=== PATIENT | female | born 1985 | race Caucasian/White ===

== ENCOUNTER → 2019-02-21 09:54 | Outpatient (CLI) | payer OTHER, SELFPAY ==
[2019-02-21 11:02] LABS: Glucose GTT-Gestation. Fasting 78 mg/dL (<105)
[2019-02-21 11:50] LABS: Glucose GTT-Gestational 1 Hr 106 mg/dL (<190)
[2019-02-21 13:23] LABS: Glucose GTT-Gestational 2 Hr 85 mg/dL (<165)
[2019-02-21 13:57] LABS: Glucose GTT-Gestational 3 Hr 84 L (<145)
== END ==
PROVIDERS: Referring Provider Obstetrics & Gynecology; Visit Provider Obstetrics & Gynecology
DX: O24.912 Unspecified diabetes mellitus in pregnancy, second trimester (principal); Z3A.00 Weeks of gestation of pregnancy not specified
CPT/HCPCS: 36415; 82951; 82952

== ENCOUNTER 2019-03-14 23:20 | Outpatient (CLI) | payer OTHER, SELFPAY ==
[2019-03-15] MEDS: Lactated Ringers 1,000 ML 999 ML IV (00:07)
[2019-03-15] MEDS: Ondansetron 4 MG/2 ML Vial IV ×2 (00:18→06:26)
[2019-03-15 00:29] VITALS: BMI 24.8
[2019-03-15 00:30] LABS: Bacteria 0 SEEN /hpf (None Seen); Mucous, Urine 0 SEEN /hpf (<or=2+)
[2019-03-15 00:31] LABS: Absolute Lymphocyte Count 0.79 X10^3/uL (0.83-4.51); Basophil# 0.01 X10^3/uL; Basophil% 0.1 % (0-1); Eosinophil# 0.01 X10^3/uL; Eosinophils% 0.1 % (0-5); Hematocrit 36.1 % (37-47); Hemoglobin 12.3 g/dL (12.0-15.0); Lymphocyte # 0.79 X10^3/ul (4.0); Lymphocyte % 8.4 % (19-41); Mean Corp Hgb Conc 34.1 g/dL (32-36); Mean Corpuscular Hgb 31.5 pg (27.0-32.0); Mean Corpuscular Volume 92.3 fL (81-99); Mean Platelet Vol. 10.4 fl (6.2-12.0); Monocyte# 0.58 X10^3/uL; Monocyte% 6.1 % (0-10); NRBC Flagged by Analyzer 0 % (0-5); Neutrophil # 7.99 X10^3/uL (2.7-7.7); Neutrophil % 84.5 % (47-70); Platelet Count 248 K/mm3 (150-450); RBC Distribution Width CV 12.3 % (11.6-14.6); RBC Distribution Width SD 41.2 fl (35.1-43.9); Red Blood Count 3.91 M/mm3 (4.2-5.4); White Blood Count 9.5 K/mm3 (4.4-11.0)
[2019-03-15 00:33] LABS: Color, Urine Yellow (Yellow); Glucose, Dipstick Normal (Normal); Leukocyte Esterase-Dipstick 100 /ul (Negative); Nitrite-Dipstick Negative (Negative); Occult Blood-Urine Negative /ul (Negative); Protein-Dipstick Negative (Negative); Urine Bilirubin Dipstick Negative (Negative); Urine Clarity Clear (Clear); Urine Urobilinogen Normal (Normal)
[2019-03-15 00:42] LABS: Ketone-Dipstick 150 mg/dl (Negative); Red Blood Cells-Urine 0-5 SEEN /hpf (0-5); Squamous Epithelial Cells - UA 25-50 SEEN /hpf (5-10); White Blood Cells 5-10 SEEN /hpf (0-5)
[2019-03-15 00:46] LABS: AST(SGOT) 17 U/L (15-37); Alanine Aminotransfer ALT/SGPT 14 U/L (13-56); Albumin, Serum 3.1 g/dL (3.2-5.0); Alkaline Phosphatase 51 U/L (45-117); Bilirubin, Direct 0.17 mg/dL (0.00-0.30); Globulin 4.2 g/dL (2.2-4.2); Protein, Total 7.3 g/dL (6.4-8.2)
[2019-03-15] MEDS: Acetaminophen 500 MG Tablet PO (05:36)
--- NOTE | 2019-03-20 08:09 | OB.TRI.NOTE ---
History of Present Illness Date of Service: 03/14/19 Was patient seen by the physician?: Yes Reason For Visit: BACK PAIN Date of Service: 03/14/19 Final SHY: 05/05/19 Final SHY Source: US <20 weeks Gestational age: 32 Weeks and 4 Days History of Present Illness: 33 yo female at 32 4/7 wk presents with severe constant back pain rated 10/10. Prior hx of term delivery after 20 hr labor. one SAB. Denies UTI sx. Allergies Penicillins Allergy (Verified 03/15/19 00:32) Rash Laboratory Studies: Laboratory Tests 03/15/19 03/15/19 03/15/19 Range/Units 00:10 00:09 00:09 WBC 9.5 (4.4-11.0) K/mm3 RBC 3.91 L (4.2-5.4) M/mm3 Hgb 12.3 (12.0-15.0) g/dL Hct 36.1 L (37-47) % MCV 92.3 (81-99) fL MCH 31.5 (27.0-32.0) pg MCHC 34.1 (32-36) g/dL RDW Std Deviation 41.2 (35.1-43.9) fl RDW Coeff of Barbra 12.3 (11.6-14.6) % Plt Count 248 (150-450) K/mm3 MPV 10.4 (6.2-12.0) fl Immature Gran % (Auto) 0.800 (0.0-0.9) % Neut % (Auto) 84.5 H (47-70) % Lymph % (Auto) 8.4 L (19-41) % [place] % (Auto) 6.1 (0-10) % Eos % (Auto) 0.1 (0-5) % Baso % (Auto) 0.1 (0-1) % Absolute Neuts (auto) 8.0 H (2.0-7.7) X10^3/uL Absolute Lymphs (auto) 0.79 L (0.83-4.51) X10^3/uL Nucleated RBC % 0 (0-5) % Total Bilirubin 0.50 (0.20-1.00) mg/dL Direct Bilirubin 0.17 (0.00-0.30) mg/dL AST 17 (15-37) U/L ALT 14 (13-56) U/L Alkaline Phosphatase 51 (45-117) U/L Total Protein 7.3 (6.4-8.2) g/dL Albumin 3.1 L (3.2-5.0) g/dL Globulin 4.2 (2.2-4.2) g/dL Urine Color Yellow (Yellow) Urine Clarity Clear (Clear) Urine pH 7.0 (5.0 - 8.0) Ur Specific [place] 1.010 (1.002-1.030) Urine Protein Negative (Negative) mg/dl Urine Glucose (UA) Normal (Normal) mg/dl Urine Ketones 150 H (Negative) mg/dl Urine Occult Blood Negative (Negative) /ul Urine Nitrite Negative (Negative) Urine Bilirubin Negative (Negative) mg/dL Urine Urobilinogen Normal (Normal) mg/dl Ur Leukocyte Esterase 100 H (Negative) /ul Urine RBC 0-5 SEEN (0-5) /hpf Urine WBC 5-10 SEEN (0-5) /hpf Ur Squamous Epith Cells 25-50 SEEN (5-10) /hpf Urine Bacteria 0 SEEN (None Seen) /hpf Urine Mucus 0 SEEN (<or=2+) /hpf Review of Systems Constitutional: Denies: Anorexia, Chills, Fever Gastrointestinal: Denies: Abdominal Pain Genitourinary: Denies: Dysuria Physical Exam General: Alert, Oriented x3, Cooperative HEENT: Atraumatic, EOMI Abdomen: Soft, Non Tender, Gravid Extremities:: No clubbing, No cyanosis, No edema Neurological: Cranial nerves II-XII grossly intact NST - FHR Rate Baby A Baseline: 140s avg accels to 160-180s Variability:: Moderate Accelerations:: 10 x 10 Decelerations:: Variable - 10 110a NST Reactive:: Yes, Appropriate for gestational age FHR Category:: Category I Uterine Activity:: UCs q3-4 min initially. With fluids given and pain meds, then to irregular. not feeling Impression/Plan 33 yo [id number] female at 32 4/7 wk EGA Musculoskeletal back pain, responded to Tylenol and dose of narcotic given for rest NST reassuring at 32 wks CBC with slight left shift . No inc WBCs and normal Hgb. LE on UA but no bacteria. LFTs WNL. Home Reviewed comfort measures. Encouraged not to lift /carry her child. Maternity support belt. tylenol prn Warm bath or shower Keep next appt as scheduled. Return if inc s/sx of labor.
== END 2019-03-15 11:00 | disposition home or self-care (01) ==
LOC: WPOUT 23:23 → WP 23:42
PROVIDERS: Obstetrics & Gynecology; Referring Provider Obstetrics & Gynecology; Visit Provider Obstetrics & Gynecology
DX: O26.893 Other specified pregnancy related conditions, third trimester (principal); M54.9 Dorsalgia, unspecified; Z88.0 Allergy status to penicillin; Z3A.32 32 weeks gestation of pregnancy
CPT/HCPCS: 36415; 59025; 59050; 80076; 81001; 85025; 99218; J7120; G0378; J2405

== ENCOUNTER 2019-03-26 08:40 | Outpatient (CLI) | payer OTHER, SELFPAY ==
[2019-03-26 09:00] VITALS: BMI 25.1
[2019-03-26 09:37] LABS: Color, Urine Straw (Yellow); Glucose, Dipstick Normal (Normal); Ketone-Dipstick Negative (Negative); Leukocyte Esterase-Dipstick 25 /ul (Negative); Nitrite-Dipstick Negative (Negative); Occult Blood-Urine Negative /ul (Negative); Protein-Dipstick Negative (Negative); Specific Gravity, Urine 1.005 (1.002-1.030); Urine Bilirubin Dipstick Negative (Negative); Urine Clarity Clear (Clear); Urine Urobilinogen Normal (Normal)
--- NOTE | 2019-03-26 10:00 | OB.TRI.PN_ITS ---
Progress Notes Date of Service: 03/26/19 Progress Note: In triage again for same problem of right lower back pain. States she came in two weeks ago and received one dose of Demerol which helped short term. She is still lifting her toddler, has not used maternity belt, and has not tried chiropractor. States massaged the area last night, but did not help. Has tried heating pad, warm baths, ice pack, and Tylenol, but nothing helping. Reports urinary frequency, but just dribbles. UA sent which shows 25+ leukoc ytes. Physical exam reveals tenderness to right lower back with palpation and tight muscle. No fevers. NST FHR baseline 130, + accels, - decels, moderate variability after ice water, Category 1. Spoke with attending Dr. Butt who is in agreement with POC. Will send RX for Macrobid 100mg BID x 5 days, Pyridium 200mg TID x 3 days, Tylenol PRN for pain, and OXY IR x 2 doses for 48 for pain not well controlled. To get in with chiropractor, encourage maternity support band, and no lifting over 5 lbs. Will send UA for culture, but suspected muscle pain. Encourage relief measures. To go home and has follow up in office 03/29/19, but to call if worsening. Laboratory Studies: Laboratory Tests 03/26/19 Range/Units 09:20 Urine Color Straw (Yellow) Urine Clarity Clear (Clear) Urine pH 7.0 (5.0 - 8.0) Ur Specific [place] 1.005 (1.002-1.030) Urine Protein Negative (Negative) mg/dl Urine Glucose (UA) Normal (Normal) mg/dl Urine Ketones Negative (Negative) mg/dl Urine Occult Blood Negative (Negative) /ul Urine Nitrite Negative (Negative) Urine Bilirubin Negative (Negative) mg/dL Urine Urobilinogen Normal (Normal) mg/dl Ur Leukocyte Esterase 25 H (Negative) /ul
== END 2019-03-26 10:15 | disposition home or self-care (01) ==
LOC: WPOUT 08:44 → WP 08:47
PROVIDERS: Obstetrics & Gynecology; Visit Provider Advanced Practice Midwife
DX: O26.899 Other specified pregnancy related conditions, unspecified trimester (principal); M54.5 Low back pain; Z3A.00 Weeks of gestation of pregnancy not specified
CPT/HCPCS: 59025; 59050; 81002; 87086; 87088; 99218; G0378

== ENCOUNTER 2019-05-09 22:30 | Inpatient (IN) | payer OTHER, SELFPAY ==
[2016-03-21 17:12] VITALS: BMI 29.3
[2019-05-09 23:24] VITALS: BMI 26.5
[2019-05-09] MEDS: Lactated Ringers 500 ML 999 ML IV (23:25)
--- NOTE | 2019-05-09 23:26 | PCM.HP.OB ---
- Problem List (1) 40 weeks gestation of Status: Acute History Date of Admission: 05/09/19 Final SHY: 05/05/19 Final SHY Source: US <20 weeks Gestational age: 40 Weeks and 4 Days History of this : This is a 33 year-old, G [3], P [1011], at 40 4/7 weeks gestational age with c/o painful contractions since 6pm. Membranes were stripped in the office earlier today. Allergies Penicillins Allergy (Verified 03/26/19 09:01) Rash Home Medications: Home Medications Vits [Prenatabs FA] 1 tablet PO DAILY 03/21/16 Docusate Sodium [Colace] 1 cap PO DAILY PRN 03/15/19 Vit D3/Folic Acid/B2/B6/B12 [Folgard Tablet] 1 cap PO DAILY PRN 03/15/19 Smoking Status: Never smoker Alcohol: None Number of Fetus(es): 1 NST - FHR Rate Baby A Baseline: 130 Variability:: Moderate Accelerations:: 15 x 15 Decelerations:: None NST Reactive:: Yes FHR Category:: Category I Uterine Activity:: 2/10 History Past Pregnancies: Past Pregnancies Delivery Date Name GA/ Weeks Outcome Route Wt Infant Sex Labor Length Anesthesia Delivery Location Provider FOB 03/22/16 Markus 40 Living 9lb11 oz M 20 Epidural [facility] 12/2016 6 TOP Labs: Mom's Labs & Results 05/09/19 05/09/19 23:30 23:30 WBC 10.4 RBC 3.42 L Hgb 10.9 L Hct 31.7 L MCV 92.7 MCH 31.9 MCHC 34.4 RDW Std Deviation 42.9 RDW Coeff of Barbra 12.6 Plt Count 213 MPV 11.0 Immature Gran % (Auto) 0.900 Neut % (Auto) 77.0 H Lymph % (Auto) 15.6 L [place] % (Auto) 5.8 Eos % (Auto) 0.5 Baso % (Auto) 0.2 Absolute Neuts (auto) 8.0 H Absolute Lymphs (auto) 1.63 Nucleated RBC % 0 Blood Type A POSITIVE Antibody Screen NEGATIVE Course Did the patient receive Yes care? Labs Blood Type: A RH: POSITIVE RPR/VDRL/Syphilis Nonreactive Rubella status Immune HbSAg Negative Date Done: 10/11/18 Chlamydia Negative Gonorrhea Negative HIV/AIDS Non-Reactive Group B Strep: Negative Current Obstetrical History Gestational Diabetes No Incompetent Cervix No Infertility No IUGR No Macrosomia No Hypertension/Pre-eclampsia No Placenta Previa/Abruption No PTL/PROM No Uterine anomaly No Oligohydramnios No Polyhydramnios No Multiple gestation No Past Medical History Asthma No Diabetes No Hypertension No Heart disease No Mitral valve prolapse No Neurologic/Seizure disorder/ No Migraines Kidney disease No Liver disease No Varicosities No Clotting disorders/Hx of DVT No Thyroid Dysfunction No Other medical diseases No Psychiatric disorders No Major trauma No Abnormal PAP smear No Sleep apnea No Mammogram in the last 2 years No Social History Marital Status: Alleged father Justyn Hx Smoking No Smoking Status Never smoker Expected Delivery Method: Spontaneous Vaginal Number of Visits: 12 Review of Systems Constitutional: Denies: Fever Eyes: Denies: Vision Change Cardiovascular: Denies: Chest Pain Respiratory: Denies: Shortness of Breath Gastrointestinal: Denies: Abdominal Pain, Nausea, Vomiting Neurological: Denies: Headaches Physical Exam Vitals: avss General: Alert, Oriented x3, Cooperative, No apparent distress HEENT: Atraumatic, Normocephalic Cardiovascular: Regular rate, Regular Rhythm, Normal S1, Normal S2 Lungs: Clear to auscultation, Normal air movement Abdomen: Soft, Non Tender, Non-Distended, Gravid Extremities:: No edema Neurological: Neuro grossly intact 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 Expectant management Pain management prn Maternal and statuses reassuring
[2019-05-09 23:48] LABS: Absolute Lymphocyte Count 1.63 X10^3/uL (0.83-4.51); Basophil# 0.02 X10^3/uL; Basophil% 0.2 % (0-1); Eosinophil# 0.05 X10^3/uL; Eosinophils% 0.5 % (0-5); Hematocrit 31.7 % (37-47); Hemoglobin 10.9 g/dL (12.0-15.0); Lymphocyte # 1.63 X10^3/ul (4.0); Lymphocyte % 15.6 % (19-41); Mean Corp Hgb Conc 34.4 g/dL (32-36); Mean Corpuscular Hgb 31.9 pg (27.0-32.0); Mean Corpuscular Volume 92.7 fL (81-99); Monocyte# 0.61 X10^3/uL; Monocyte% 5.8 % (0-10); NRBC Flagged by Analyzer 0 % (0-5); Neutrophil # 8.04 X10^3/uL (2.7-7.7); Platelet Count 213 K/mm3 (150-450); RBC Distribution Width CV 12.6 % (11.6-14.6); RBC Distribution Width SD 42.9 fl (35.1-43.9); Red Blood Count 3.42 M/mm3 (4.2-5.4); White Blood Count 10.4 K/mm3 (4.4-11.0)
[2019-05-09] MEDS: Lactated Ringers 1,000 ML 200 ML IV (23:56)
[2019-05-10] MEDS: fentaNYL-bupivacaine (epidural) 100 ML BAG EPIDURAL (00:52)
[2019-05-10] MEDS: Lactated Ringers 500 ML 999 ML IV (03:19)
[2019-05-10] MEDS: Oxytocin 30 units/NS 500 ml 30 UNITS/500 ML IV.SOLN 334 UNITS IV (04:14)
--- NOTE | 2019-05-10 04:40 | OP.PCM_ITS ---
Problem List (1) 40 weeks gestation of Status: Acute Vaginal Delivery Maternal Presentation: Active Labor Rupture of Membrane time: 0348h 05/10/19 Amniotic Fluid Description: Clear Final SHY: 05/05/19 Gestational age: 40 Weeks and 5 Days Date of Procedure: 05/10/19 Pre-Operative Diagnosis: 40 5/7wga, labor Post-Operative Diagnosis: 40 5/7wga, labor Surgery/ Procedure Performed: Spontaneous Vaginal Delivery Anesthesiologist: Mari Blackwood Type of Anesthesia: Epidural Description of Procedure: Patient was FD/-2 station with BBOW. Amniotomy performed with clear fluid. Patient began pushing shortly after. Delivery of head in NIKKIE. Infant mouth and nares were suctioned at the perineum then shoulders delivered to reveal a female . The infant was placed on the maternal abdomen and further a ttended by nursery personnel. The cord was doubly clamped and cut at approximately 4 minutes of life. Cord gas specimen were obtained. The placenta delivered spontaneously and appeared intact on inspection. A First degree perineal laceration with vaginal extension was repaired with 3-0 Vicryl Rapide. Sponge and needle counts were correct x 2 Presentation: Vertex Placental Delivery Description: Spontaneous Placenta Disposition: [facility] Cord Vessel Description: 3 Vessels Nuchal Cord Compression: Without compression Cord Gases drawn per routine: ABG, VBG Cord Entanglement: - - around ankle Drain: Call to straight drain Estimated Blood Loss: 200 ml Infant A gender: Female (1 minute): 8 (5 minute): 9 Episiotomy Description: None Laceration: Midline, 1st degree Medications given after delivery: IV Pitocin Complications: None
[2019-05-10 08:25] VITALS: BP 111/65; PULSE 78; RESP 16; TEMP 37.3
--- NOTE | 2019-05-10 08:30 | NURSING ---
Epidural cath discontinued, blue tip intact.
[2019-05-10] MEDS: Ibuprofen 600 MG Tablet PO ×2 (10:05→21:21)
[2019-05-10] MEDS: Prenatal Vits Tablet 1 TABLET PO (10:05)
[2019-05-10 12:50] VITALS: BP 108/71; PULSE 77; RESP 16; TEMP 36.6
[2019-05-10] MEDS: Acetaminophen 500 MG Tablet 1000 MG PO (13:46)
[2019-05-10 16:35] VITALS: BP 110/65; PULSE 75; RESP 16; TEMP 36.8
[2019-05-10 20:21] VITALS: BP 107/59; PULSE 92; RESP 14; TEMP 37.1
[2019-05-10 23:45] VITALS: BP 116/66; PULSE 72; RESP 16; TEMP 37.1
[2019-05-11] MEDS: Acetaminophen 500 MG Tablet 1000 MG PO ×2 (05:17→14:00)
[2019-05-11 05:19] VITALS: BP 117/63; PULSE 75; RESP 18; TEMP 37.3
[2019-05-11 10:23] VITALS: BP 102/63; PULSE 78; RESP 16; TEMP 36.7; O2SAT 96
[2019-05-11] MEDS: Ibuprofen 600 MG Tablet PO (10:45)
[2019-05-11] MEDS: Prenatal Vits Tablet 1 TABLET PO (10:45)
--- NOTE | 2019-05-11 13:23 | DCINST_ITS ---
Discharge Diet: No Restrictions Discharge Activity: Return to Normal Activity, May Shower, - - No tub bath for 2 weeks May resume sexual activity in: 6 weeks Lifting Restrictions: 10-20 lb Additional Instructions: If you experience any of the following, contact your healthcare provider. * Bleeding that soaks a pad every hour for 2 hours * Fever 100.4 or higher * Unrelieved incision or abdominal pain * Swelling, redness, discharge or bleeding from your incision or episiotomy site * Your incision begins to separate * Problems urinating (including inability to urinate or burning while urinating). * Visual changes * Severe headache * Flu-like symptoms * Pain or redness in one of both of your breasts * Pain, warmth, tenderness or swelling in your legs, especially the calf area * Frequent nausea and vomiting * Symptoms of depression or anxiety If you experience any of the following, call 911 or go to the nearest Emergency Room. * Chest pain * Problems breathing * Seizure activity * Partial or complete paralysis of a body part, slurred speech, weakness or drooping of the face, or a sudden inability to walk or hold your balance Allergies/Adverse Reactions: Allergies Penicillins Allergy (Verified 05/10/19 00:12) Rash Medications to take at Discharge Vits [Prenatabs FA] 1 tablet PO DAILY 03/21/16 Docusate Sodium [Colace] 1 cap PO DAILY PRN 03/15/19 Vit D3/Folic Acid/B2/B6/B12 [Folgard Tablet] 1 cap PO DAILY PRN 03/15/19 Please Follow Up With: Sadia Hendrix MD When: 2 weeks and 6 weeks Primary Care Physician: Care Physician,No Primary [Primary Care Provider] - Test Results: Test results from this visit will be discussed in further detail at your follow- up appointment, if applicable.
--- NOTE | 2019-05-11 13:23 | PCM.DCVAG ---
Discharge Diet: No Restrictions Discharge Activity: Return to Normal Activity, May Shower, - - No tub bath for 2 weeks May resume sexual activity in: 6 weeks Lifting Restrictions: 10-20 lb Additional Instructions: If you experience any of the following, contact your healthcare provider. Bleeding that soaks a pad every hour for 2 hours Fever 100.4 or higher Unrelieved incision or abdominal pain Swelling, redness, discharge or bleeding from your incision or episiotomy site Your incision begins to separate Problems urinating (including inability to urinate or burning while urinating). Visual changes Severe headache Flu-like symptoms Pain or redness in one of both of your breasts Pain, warmth, tenderness or swelling in your legs, especially the calf area Frequent nausea and vomiting Symptoms of depression or anxiety If you experience any of the following, call 911 or go to the nearest Emergency Room. Chest pain Problems breathing Seizure activity Partial or complete paralysis of a body part, slurred speech, weakness or drooping of the face, or a sudden inability to walk or hold your balance Allergies/Adverse Reactions: Allergies Penicillins Allergy (Verified 05/10/19 00:12) Rash Medications to take at Discharge Vits [Prenatabs FA] 1 tablet PO DAILY 03/21/16 Docusate Sodium [Colace] 1 cap PO DAILY PRN 03/15/19 Vit D3/Folic Acid/B2/B6/B12 [Folgard Tablet] 1 cap PO DAILY PRN 03/15/19 Please Follow Up With: Sadia Hendrix MD When: 2 weeks and 6 weeks Primary Care Physician: Care Physician,No Primary [Primary Care Provider] - Test Results: Test results from this visit will be discussed in further detail at your follow-up appointment, if applicable.
[2019-05-11 13:52] VITALS: BP 113/73; PULSE 75; RESP 16; TEMP 36.5; O2SAT 98
--- NOTE | 2019-05-11 18:58 | PCM.PN.OB ---
Subjective: This is a note from today at 0850 Pain well controlled, passing flatus, tolerating diet, well; spouse bedside and supportive; planning OCP for contraception; desires discharge home today Objective: AVSS Nipples atraumatic Fundus firm, midline, U/1, lochia small Perineal repair well approximated, minimal edema, no drainage, erythema or ecchymosis noted - Physical Exam Vitals/I&O's: Vital Signs Temp Pulse Resp BP Pulse Ox 97.7 F L 75 16 113/73 98 05/11/19 13:52 05/11/19 13:52 05/11/19 13:52 05/11/19 13:52 05/11/19 13:52 Oxygen Delivery Method Room Air Weight: 185 lb Body Mass Index (BMI) 26.5 Intake and Output for Last 24 Hours 05/09/19 05/10/19 05/11/19 23:59 23:59 23:59 Intake Total 500 / 500 2176.67 / 2176.67 Output Total 2200 / 2200 Balance 500 / 500 -23.33 / -23.33 General: Alert, Oriented x3, Cooperative, No apparent distress HEENT: PERRLA, EOMI Oral: Moist Mucosa Neck: Supple Lungs: Clear to auscultation, Normal air movement Cardiovascular: Regular rate, Regular Rhythm Abdomen: Bowel Sounds Present, Non Tender, Non-Distended, Passing Flatus, Bowel Sounds Not Present, Gravid Extremities: No edema Skin: No rashes Neurological: Cranial nerves II-XII grossly intact, Deep Tendon Reflexes 2+/4 and Symmetrical, Neuro grossly intact Psych/Mental Status: Normal Affect, Appropriate, Alert and oriented to time, place, person, mood and affect Medical Necessity - Tobacco Use Smoking Status: Never smoker Assessment/Plan All Active Problems 40 weeks gestation of (Acute) Status post vacuum-assisted vaginal delivery (Acute) (normal spontaneous vaginal delivery) (Acute) 41 weeks gestation of (Acute) Assessment: 33yo delivered via at 40w5d gestation PP day #1, normal involution, normal course Plan: Discharge teaching completed Discussed and OCPs, recommend progesterone only pill or LARC, discussed risks, benefits, drawbacks of each; to discuss further at PP visit Discharge home today RTO 6 weeks for PP checkup
== END 2019-05-11 14:55 | disposition home or self-care (01) | DRG 807 ==
PROVIDERS: Admitting Provider Obstetrics & Gynecology; Referring Provider Obstetrics & Gynecology; Visit Provider Obstetrics & Gynecology
DX: O70.0 First degree perineal laceration during delivery (principal); Z37.0 Single live birth; O69.82X0 Labor and delivery complicated by other cord entanglement, without compression, not applicable or unspecified; Z3A.40 40 weeks gestation of pregnancy
CPT/HCPCS: 59050; 85025; 86850; 86900; 86901; 99218; J7120; G0378

== ENCOUNTER → 2025-04-02 | Outpatient (CLI) | payer OTHER, SELFPAY ==
--- OUTSIDE RECORDS SUMMARY | 2025-04-02 18:40 | XMS RPT_ITS | CCD ---
Author Organization [facility] Inform ion Partnership [employer] [facility] [facility] Care Team Providers Care Tug Hand Name Role Phone Unavailable Primary Care Provider Sridevi Lucas Attending Unavailable Care Physician, No Primary Referring Unava ilable Care Physician, No Primary Primary Care Unava ilable Care Physician, No Primary Primary Care Unava ilable Assessment, Health Risk Referring Unavaila ble Assessment, Health Risk Attending Unavaila ble Allergies Allergy Classification Reported Allergen(s) Allergy Type Date of Onset Reaction(s) Facility (3 sources) Penicillins; Translations: [PENICILLINS] Drug Allergy 03-05-2021 Rash [facility] (1 source) Penicillins Drug allergy (disorder) 04-19-2024 [facility] Repository Medications Current Medications Medication Drug Class(es) Dates Sig (Normalized) Sig (Original) cephalexin 500 mg oral capsule (2 sources) Cephalosporin Antibacterial Start: 04-07-2023 End: 04-17-2023 take 1 capsule by mouth twice daily cephALEXin (KEFLEX) 500 mg capsule Indications: Strep throat Take 1 capsule by mouth two times a day for 10 days. 20 capsule 0 04/07/2023 04/17/2023 Active Comment on above: Take 1 capsule by mo [facility] two times a day for 10 days. drospirenone / Ethinyl Estradiol / levomefolate (2 sources) Progestin, Estrogen Start: 02-22-2021 take 1 tablet by mouth once daily drospirenone-e.e stradiol-lm.FA (BEYAZ) 3-0.02-0.451 mg (24) (4) tab Take 1 tablet by mouth once daily. 02/22/2021 Active Start: 02-22-2021 take 1 tablet by sal once daily drospirenone-e.estradiol-lm.FA (BEYAZ) 3-0.02-0.451 mg (24) (4) tab Take 1 tablet by mouth once daily. 0 02/22/2021 Active Comment on above: Take 1 tablet by sal th once daily. Completed/Discontinued Medications Medication Drug Class(es) Dates Sig (Normalized) Sig (Original) benzonatate 100 mg oral capsule (1 source) Non-narcotic Antitussive Start: 03-05-2021 take 2 capsules by mouth every eight hours as needed for cough and cough benzonatate (TESSALON PERLE) 100 mg capsule Indications: Cough Take 2 capsules by mouth three times daily as needed. 30 capsule 0 03/05/2021 Active Comment on above: Take 2 capsules by [facility] three times daily as needed. Problems Active Problems Problem Classification Problem Date Documented Da te Episodic/Chronic Lymphadenitis (1 source) Cervical lymphadenopathy; Translations: [Localized enlarged lymph nodes] 04-07-2023 Episodic Unclassified (1 source) Acute cough; Translations: [Acute cough] Onset: 05-16-2024 Past or Other Problems Problem Classification Problem Date Documented Da te Episodic/Chronic Other upper respiratory disease (1 source) Nasal congestion; Translations: [Nasal congestion] Onset: 05-16-2024 Episodic Other upper respiratory infections (4 sources) Sore throat symptom; Translations: [Acute pharyngitis, unspecified] Onset: 05-16-2024 04-07-2023 Episodic Results Test Name Value Interpretation Reference Range Facil ity CBC, Employeeon 12-02-2024 Absolute Lymph 1.25 X10 3/uL Normal 0.83-4.51 [facility] Comment on above: Performed By: #### L 100.0200, L500.2900 #### [facility] [address] [place], [address] Absolute Neut 1.7 X10 3/uL Low 2.0-7.7 [facility] Comment on above: Performed By: #### L 100.0200, L500.2900 #### [facility] [address] [place], [address] Basophils/100 WBC (Bld) 0.6 % Normal 0-1 [facility] Comment on above: Performed By: #### L 100.0200, L500.2900 #### [facility] [address] [place], [address] Eosinophils/100 WBC (Bld) 1.8 % Normal 0-5 [facility] Comment on above: Performed By: #### L 100.0200, L500.2900 #### [facility] [address] [place], [address] Erythrocyte distribution width (RBC) [Ratio] 11.8 % Normal 11.6-14.6 [facility] Comment on above: Performed By: #### L 100.0200, L500.2900 #### [facility] [address] [place], [address] Hematocrit (Bld) [Volume fraction] 34.9 % Low 37-47 [facility] Comment on above: Performed By: #### L 100.0200, L500.2900 #### [facility] [address] [place], [address] Hemoglobin (Bld) [Mass/Vol] 11.7 g/dL Low 12.0-15.0 [facility] Comment on above: Performed By: #### L 100.0200, L500.2900 #### [facility] [address] [place], [address] Lymphocytes/100 WBC (Bld) 38.2 % Normal 19-41 [facility] Comment on above: Performed By: #### L 100.0200, L500.2900 #### [facility] [address] [place], [address] MCH (RBC) [Entitic mass] 30.9 pg Normal 27.0-32.0 [facility] Comment on above: Performed By: #### L 100.0200, L500.2900 #### [facility] [address] [place], [address] MCHC (RBC) [Mass/Vol] 33.5 g/dL Normal 32-36 [facility] Comment on above: Performed By: #### L 100.0200, L500.2900 #### [facility] [address] [place], [address] MCV (RBC) [Entitic vol] 92.1 fL Normal 81-99 [facility] Comment on above: Performed By: #### L 100.0200, L500.2900 #### [facility] [address] [place], [address] Monocytes/100 WBC (Bld) 7.6 % Normal 0-10 [facility] Comment on above: Performed By: #### L 100.0200, L500.2900 #### [facility] [address] [place], [address] Neutrophils/100 WBC (Bld) 51.8 % Normal 47-70 [facility] Comment on above: Performed By: #### L 100.0200, L500.2900 #### [facility] [address] [place], [address] NRBC # 0.00 10 3/uL Normal 0-5 [facility] Comment on above: Performed By: #### L 100.0200, L500.2900 #### [facility] [address] [place], [address] Nucleated RBC (Bld) [#/Vol] 0 10*3/uL Normal 0-5 [facility] Comment on above: Performed By: #### L 100.0200, L500.2900 #### [facility] [address] [place], [address] Platelet mean volume (Bld) [Entitic vol] 10.4 fL Normal 6.2-12.0 [facility] Comment on above: Performed By: #### L 100.0200, L500.2900 #### [facility] [address] [place] [address] Platelets (Bld) [#/Vol] 222 10*3/uL Normal 150-450 [facility] Comment on above: Performed By: #### L 100.0200, L500.2900 #### [facility] [address] [place], [address] RBC (Bld) [#/Vol] 3.79 10*6/uL Low 4.2-5.4 [facility] Comment on above: Performed By: #### L 100.0200, L500.2900 #### [facility] [address] [place], [address] RDW SD 39.8 fl Normal 35.1-43.9 [facility] Comment on above: Performed By: #### L 100.0200, L500.2900 #### [facility] [address] [place], [address] WBC (Bld) [#/Vol] 3.3 10*3/uL Low 4.4-11.0 [facility] Comment on above: Performed By: #### L 100.0200, L500.2900 #### [facility] [address] [place], [address] [employer] 5 LDH 143 U/L Normal 84-246 [facility] Comment on above: Performed By: #### L 100.0200, L500.2900 #### [facility] [address] [place], [address] Phosphate [Mass/Vol] 3.6 mg/dL Normal 2.7-4.[address] [facility] Comment on above: Performed By: #### L 100.0200, L500.2900 #### [facility] [address] [place], [address] URIC 2.4 mg/dL Low 2.6-6.0 [facility] Comment on above: Result Comment: The drugs N-Acetylcysteine and Metamizole may falsely depress this assay. Performed By: #### L 100.0200, L500.2900 #### [facility] [address] [place], [address] Urgent Care Visit Reporton 0 04-19-2024 Urgent Care Visit Report [facility] [address], [address] [place] [address] OFFICE VISIT Date of Service: 04/19/24 MR#: [id number] Acct: [id number] Name: MAKAYLA LOZANO Rep #: [id number] : 1985 Provider: GISSELL Booth Age/Sex: 38/F Location: [facility] Status: Signed Intake Vital Signs 05/09/19 23:43 04/19/24 08:14 Height 5 ft 10 in 5 ft 10 in Weight: 140 lb 6 oz BMI 20.1 BP 104/58 L Blood Pressure Location Lt brachial Position Sitting Respiration 16 Pulse 71 Pulse Source NIBP Temp 98.0 F Temp Source Oral Pulse Oximetry (%) 98 Oxygen Delivery Method room air Intake Visit Reasons: Cough Chief Complaint: cough, chest congestion [employer] Required: No Is patient in pain?: No Allergies Penicillins Allergy (Verified 04/19/24 08:25) Rash Medications ???Medication ???Instructions ???Recorded ???Confirmed ???Type vits,calcium no.78-iron 1 tab PO DAILY 03/21/16 05/10/19 History fumarate-folic acid 29 mg-1 mg tablet (Prenatabs FA) doxycycline monohydrate 100 mg 100 mg PO BID 7 days #14 caps 04/19/24 04/19/24 Rx capsule Is last menstrual period known: No Post menopausal: No Patient : No Have you fallen in the past year?: No Nurse's Note: cough, chest congestion x 3 weeks without resolve. pt denies ST, fever, BA PFSH Surgical History (Updated 04/19/24 @ 08:21 by Pallavi Tracy) No significant past surgical history Family History (Updated 04/19/24 @ 08:21 by Pallavi Tracy) Other Cancer Social History Smoking Status: Never smoker HPI HPI Chief Complaint: cough, chest congestion Details: MAKAYLA LOZANO, is a 38 F who presents to the office today for cough -sx started about 3 wks ago -a lot of mucous, started to feel better until yesterday- -yellow mucous -couple days ago with runny nose -sinus pressure -no fever or chills -denies ST, body aches, or sob -tried so far mucinex and ibuprofen ROS Const Constitutional: Positive for other (ROS negative x6 except what was placed in HPI) Exam Const General: cooperative, comfortable and no acute distress Orientation: alert, awake and oriented x3 HENMT Head: normal to inspection and normocephalic Ears: hearing grossly normal bilaterally, external ears normal and TM's normal bilaterally Nose: external nose normal, nares normal, no nasal polyps, nasal discharge clear and other (+ congestion and rhinorrhea. Mild erythema and swelling) Face and sinus: normal facial exam, face symmetric and sinus tenderness frontal Mouth: oral mucosae normal, lip normal, tongue normal, oropharynx normal and moist mucous membranes Throat: posterior oropharynx normal, tonsils normal, uvula midline and postnasal drainage Neck Neck: normal visual inspection, full ROM and no lymphadenopathy Resp Effort Inspection: normal respiratory effort, able to speak in complete sentences and symmetric chest movement Auscultation: Bilateral: Clear to Auscultation, Left: Clear to Auscultation and Right: Clear to Auscultation Cardio Rate: regular rate Rhythm: regular rhythm Heart Sounds: S1 normal and S2 normal GI Auscultation: normal bowel sounds Palpation: soft Skin General: no rashes or lesions noted and turgor normal Neuro General: patient alert, patient awake and patient oriented x3 Cognition: normal cognition Speech: speech normal Psych Appearance: grossly normal Mental Status: mental status grossly normal Attitude: cooperative Thought Process: normal Thought Content: normal Coding Level of Care Code Off vis,new,level 3 Diagnoses Acute non-recurrent frontal sinusitis J01.10 Sinusitis location: frontal Chronicity: acute Recurrence: non-recurrent PND (post-nasal drip) R09.82 Acute cough R05.1 Cough type: acute Nasal congestion R09.81 Assessment and Plan Assessment and Plan (1) Sinus infection: Status: Acute Qualifiers: Sinusitis location: frontal Chronicity: acute Recurrence: non-recurrent Qualified Code(s): J01.10 - Acute frontal sinusitis, unspecified Plan: -If prescribed antibiotics take the full course even if feeling better. Warm salt water gargles, warm tea with honey, increase fluids, saline nasal spray 2 squirts each nostril every 2 hours as needed, Flonase nasal spray 1 squirt once a day, cetirizine (Zyrtec) one daily, cool mist humidifier, Tylenol and or ibuprofen as needed for fever or discomfort. -to avoid GI upset, diarrhea, yeast infection eat a yogurt daily or take an otc probiotic -Please follow up with your Primary Care Physician for ongoing chronic problems. If symptoms change or worsen, please present to Emergency Room for further evaluation 1. See visit diagnoses, disposition, and orders. 2. Reviewed and updated medication list; Discus (more content not included)... [facility] Visit (UCW[facility] ) MAKAYLA LOZANO ([id number]) 1985 F Date Time Provider Department 04/07/23 2:15 PM ISABEL JENNINGS [facility] During your visit today, we recorded the following information about you: Temperature Respiration Blood pressure Weight 98 degrees 18/minute 112/60 65.7 kg Isabel Jennings APRN.SENIOR NET DEVELOPER 04/07/2023 2:32 PM Signed Subjective Sore Throat Associated symptoms include coughing. Pertinent negatives include no abdominal pain, congestion, ear pain or vomiting. Makayla Lozano is a 37 year old female who presents with swollen lymph node on the left side of her neck. She has had chills, a slight cough and sore throat and nausea. She has taken ibuprofen for symptoms. Works in a [employer]. No fever today. Review of Systems Constitutional: Positive for chills. Negative for fever. HENT: Positive for sore throat. Negative for congestion and ear pain. Respiratory: Positive for cough. Cardiovascular: Negative. Gastrointestinal: Positive for nausea. Negative for abdominal pain and vomiting. Skin: Negative for rash. BP 112/60 Temp 36.7 ?C (98 ?F) Resp 18 Wt 65.7 kg (144 lb 12.8 oz) LMP 02/19/2021 (Exact Date) SpO2 98% No past medical history on file. No past surgical history on file. ALLERGIES Penicillins MEDICATIONS cephALEXin (KEFLEX) 500 mg capsule Take 1 capsule by mouth two times a day for 10 days. drospirenone-e.estrad iol-lm.FA (BEYAZ) 3-0.02-0.451 mg (24) (4) tab Take 1 tablet by mouth once daily. (Patient not taking: Reported on 04/07/2023) benzonatate (TESSALON PERLE) 100 mg capsule Take 2 capsules by mouth three times daily as needed. (Patient not taking: Reported on 04/07/2023) No family history on file. Social History Tobacco Use Smoking status: Never Smokeless tobacco: Never Objective Physical Exam Vitals and nursing note reviewed. Constitutional: Appearance: Normal appearance. HENT: Right Ear: Tympanic membrane, ear canal and external ear normal. Left Ear: Tympanic membrane, ear canal and external ear normal. Nose: Nose normal. Mouth/Throat: Mouth: Mucous membranes are moist. Pharynx: Uvula midline. Posterior oropharyngeal erythema present. No oropharyngeal exudate. Cardiovascular: Rate and Rhythm: Normal rate and regular rhythm. Heart sounds: Normal heart sounds. Pulmonary: Effort: Pulmonary effort is normal. No respiratory distress. Breath sounds: Normal breath sounds. No wheezing or rales. Musculoskeletal: Cervical back: Neck supple. Lymphadenopathy: Cervical: Cervical adenopathy present. Left cervical: Superficial cervical adenopathy present. Skin: General: Skin is warm and dry. Findings: No erythema or rash. Neurological: Mental Status: She is alert. ASSESSMENT/PLAN: 1. Sore throat - ICD9: 462, ICD10: J02.9 (primary diagnosis) - Group A strep molecular testing positive - STREP A MOLECULAR (POC) 2. Strep throat - ICD9: 034.0, ICD10: J02.0 - antibiotic as written - Discussed supportive care treatment with fluids, rest and analgesia. - The patient may also use warm salt water gargles, throat lozenges and/or OTC throat spray as needed. - Contagious dz precautions discussed- including considered contagious until on antibiotics for 24 hours - Call back if drooling, increased temperature, symptoms of dehydration and/or still sick in one week - CEPHALEXIN 500 MG CAPSULE 3. Lymphadenopathy, cervical - ICD9: 785.6, ICD10: R59.0 -likely due to strep infection. - Follow-up with your PCP in 3-5 days if symptoms have not improved or sooner if symptoms worsen - Discussed red flags and need for immediate medical evaluation if any occur. - Discussed supportive care treatment with fluids, rest and analgesia. - Discussed expected course of illness EVE Lovett Kathy, APRN.CNP 04/07/2023 2:24 PM Signed ASSESSMENT/PLAN: 1. Sore throat - ICD9: 462, ICD10: J02.9 (primary diagnosis) - Group A strep molecular testing positive - STREP A MOLECULAR (POC) 2. Strep throat - ICD9: 034.0, ICD10: J02.0 - antibiotic as written - Discussed supportive care treatment with fluids, rest and analgesia. - The patient may also use warm salt water gargles, throat lozenges and/or OTC throat spray as needed. - Contagious dz precautions discussed- including considered contagious until on antibiotics for 24 hours - Call back if drooling, increased temperature, symptoms of dehydration and/or still sick in one week - CEPHALEXIN 500 MG CAPSULE 3. Lymphadenopathy, cervical - ICD9: 785.6, ICD10: R59.0 -likely due to strep infection. - Follow-up with your PCP in 3-5 days if symptoms have not improved or sooner if symptoms worsen - Discussed red flags and need for immediate medical evaluation if any occur. - Discussed supportive care treatment with fluids, rest and analgesia. - Discus (more content not included)... Normal [facility] STREP A MOLECULAR (POC)on Procedural Control Valid [facility] Strep A (POCT) Positive Abnormal Negative [facility] XR Chest PA and Lateralon IMPRESSION: No acute radiographic abnormality. Head Tennis Coach: TONEY Transcribe Date/Time: Mar 05 2021 5:25P Dictated by : ZEYNEP JONES MD This examination was interpreted and the report reviewed and electronically signed by: ZEYNEP JONES MD on Mar 05 2021 5:26PM [facility] DIVISION OF RADIOLOGY * * *Final Report* * * DATE OF EXAM: Mar 05 2021 5:24PM WOX [id number] - XR CHEST 2V FRONTAL/LAT / PROCEDURE REASON: Cough * * * * Physician Interpretation * * * * EXAMINATION: XR CHEST 2V FRONTAL/LAT Clinical History: Pt. states cough for 1 month. Chest pain and soreness for 1 week.. Cough . MQ: XC2_5 Comparison: none available RESULT: Lines, tubes, and devices: none Lungs and pleura: No consolidation. No lung mass. No pleural effusion. Cardiomediastinal silhouette: Normal. Other: - DIVISION OF RADIOLOGY Provider, [facility] - 03/05/2021 * * *Final Report* * * DATE OF EXAM: Mar 05 2021 5:24PM WOX [id number] - XR CHEST 2V FRONTAL/LAT / PROCEDURE REASON: Cough * * * * Physician Interpretation * * * * EXAMINATION: XR CHEST 2V FRONTAL/LAT Clinical History: Pt. states cough for 1 month. Chest pain and soreness for 1 week.. Cough . MQ: XC2_5 Comparison: none available RESULT: Lines, tubes, and devices: none Lungs and pleura: No consolidation. No lung mass. No pleural effusion. Cardiomediastinal silhouette: Normal. Other: - IMPRESSION IMPRESSION: No acute radiographic abnormality. Head Tennis Coach: TONEY Transcribe Date/Time: Mar 05 2021 5:25P Dictated by : ZEYNEP JONES MD This examination was interpreted and the report reviewed and electronically signed by: ZEYNEP JONES MD on Mar 05 2021 5:26PM EST [facility] Radiology Study observation (narrative) [facility] XR Chest PA and LateralOrder ed By: Cc Provider on 03-05-2021 [facility] Vital Signs Date Time Vital Sign Value Performing Clinician Faci lity 04-07-2023 14:13-0500 Body temperature 98.01 [degF] Isabelscott Jennings APRN.SENIOR NET DEVELOPER Work Phone: [facility] 04-07-2023 14:13-0500 Body weight 65.68 kg Isabel Jennings APRN.SENIOR NET DEVELOPER Work Phone: [facility] 04-07-2023 14:13-0500 Diastolic blood pressure 60 mm[Hg] Isabel Jennings APRN.SENIOR NET DEVELOPER Work Phone: [facility] 04-07-2023 14:13-0500 Respiratory rate 18 /min Isabel Jennings APRN.SENIOR NET DEVELOPER Work Phone: [facility] 04-07-2023 14:13-0500 SaO2% (BldA) [Mass fraction] 98 % Isabel Jennings APRN.SENIOR NET DEVELOPER Work Phone: [facility] 04-07-2023 14:13-0500 Systolic blood pressure 112 mm[Hg] Isabel Jennings APRN.SENIOR NET DEVELOPER Work Phone: [facility] Encounters Encounter Date Encounter Type Care Provider Facility Start: 12-02-2024 ambulatory No Primary Car e Physician Facility:[facility] Start: 04-19-2024 End: 04-19-2024 ambulatory [facility] Facility:[facility] Start: 04-07-2023 End: 04-07-2023 ambulatory Facility:[facility] Start: 04-07-2023 End: 04-07-2023 Patient encounter procedure Isabel Jennings APRN.SENIOR NET DEVELOPER Work Phone: [facility] Comment on above: Sore throat (Primary Dx); Strep throat; Lymphadenopathy, cervical Start: 03-05-2021 End: 03-05-2021 Subsequent hospital visit by physician Xr [facility] Work Phone: Radiology Comment on above: Cough [R05.9] Procedures Date Procedure Procedure Detail Performing Clinician Start: 04-07-2023 STREP A MOLECULAR (POC) Isabel Jennings APRN.SENIOR NET DEVELOPER Work Phone: Start: 03-05-2021 Radiologic exam ches t 2 views Jaylen Weiss APRN.SENIOR NET DEVELOPER Work Phone: Plan of Treatment Date Care Activity Detail Author Start: 12-19-2023 Covid-19 Vaccine ( season) Covid-19 Vaccine ( season) [facility] Start: 12-19-2023 Influenza vaccination Influenza Vacc ine (#1) [facility] Start: 12-18-2022 Covid-19 Vaccine ( season) Covid-19 Vaccine () [facility] Start: 12-18-2022 Influenza vaccination Influenza Vacc ine (#1) [facility] Start: 04-19-2022 Depression Assessment Depression Ass essment [facility] Start: 11-26-2017 Screening for malign ant neoplasm of cervix HPV Testing [facility] Start: 11-26-2008 Screening for malign ant neoplasm of cervix [facility] Start: 11-26-2006 Hepatitis B Vaccine (1 of 3 - 19+ 3-dose series) Hepatitis B Vaccine (1 of 3 - 19+ 3-dose series) [facility] Start: 11-26-2006 Urine microalbumin profile DTa P,Tdap,Td Vaccine (1 - Tdap) [facility] Start: 11-26-2005 Anxiety Screening Anxiety Screening [facility] Start: 11-26-2005 Depression Screening Depression Scre ening [facility] Start: 11-26-2005 Hepatitis C screening Hepatitis C Sc elise [facility] Start: 11-26-2005 HIV screening HIV Screening [facility] Start: 1985 Hepatitis B Vaccine (1 of 3 - 3-dose series) Hepatitis B Vaccine (1 of 3 - 3-dose series) [facility] Immunizations Immunization Date Immunization Notes Care Provider Robert tanner 03-23-2016 influenza virus vacc ine, unspecified formulation Isabel Jennings APRN.CNP Work Phone: [facility] Payers Date Payer Category Payer Self-pay 2020 Private Health Insurance [id number] 2020 Unknown [id number] Unknown [id number] Unknown [id number] Social History Date Type Detail Facility Start: 03-05-2021 End: 04-07-2023 Tobacco smoking status NHIS Never smoked tobacco [facility] Start: 03-05-2021 End: 04-07-2023 Tobacco use and exposure Smokeless tobacco non-user [facility] Start: 03-05-2021 End: 04-07-2023 History of Social function [facility] Start: 03-05-2021 End: 04-07-2023 Tobacco use panel [facility] Start: 1985 Sex Assigned At Not on file [facility] Progress note 04-07-2023 Note Date & Type Note Facility 04-07-2023 Note HNO ID: [id number] Author: Isabel Jennings APRN.SENIOR NET DEVELOPER Service: ? Author Type: Nurse Practitioner Type: Progress Notes Filed: 04/07/2023 2:32 PM Note Text: Subjective Sore Throat Associated symptoms include coughing. Pertinent negatives include no abdominal pain, congestion, ear pain or vomiting. Makayla Lozano is a 37 year old female who presents with swollen lymph node on the left side of her neck. She has had chills, a slight cough and sore throat and nausea. She has taken ibuprofen for symptoms. Works in a [employer]. No fever today. Review of Systems Constitutional: Positive for chills. Negative for fever. HENT: Positive for sore throat. Negative for congestion and ear pain. Respiratory: Positive for cough. Cardiovascular: Negative. Gastrointestinal: Positive for nausea. Negative for abdominal pain and vomiting. Skin: Negative for rash. BP 112/60 Temp 36.7 ?C (98 ?F) Resp 18 Wt 65.7 kg (144 lb 12.8 oz) LMP 02/19/2021 (Exact Date) SpO2 98% No past medical history on file. No past surgical history on file. ALLERGIES Penicillins MEDICATIONS cephALEXin (KEFLEX) 500 mg capsule Take 1 capsule by mouth two times a day for 10 days. drospirenone-e.estradiol-lm.FA (BEYAZ) 3-0.02-0.451 mg (24) (4) tab Take 1 tablet by mouth once daily. (Patient not taking: Reported on 04/07/2023) benzonatate (TESSALON PERLE) 100 mg capsule Take 2 capsules by mouth three times daily as needed. (Patient not taking: Reported on 04/07/2023) No family history on file. Social History Tobacco Use Smoking status: Never Smokeless tobacco: Never Objective Physical Exam Vitals and nursing note reviewed. Constitutional: Appearance: Normal appearance. HENT: Right Ear: Tympanic membrane, ear canal and external ear normal. Left Ear: Tympanic membrane, ear canal and external ear normal. Nose: Nose normal. Mouth/Throat: Mouth: Mucous membranes are moist. Pharynx: Uvula midline. Posterior oropharyngeal erythema present. No oropharyngeal exudate. Cardiovascular: Rate and Rhythm: Normal rate and regular rhythm. Heart sounds: Normal heart sounds. Pulmonary: Effort: Pulmonary effort is normal. No respiratory distress. Breath sounds: Normal breath sounds. No wheezing or rales. Musculoskeletal: Cervical back: Neck supple. Lymphadenopathy: Cervical: Cervical adenopathy present. Left cervical: Superficial cervical adenopathy present. Skin: General: Skin is warm and dry. Findings: No erythema or rash. Neurological: Mental Status: She is alert. ASSESSMENT/PLAN: 1. Sore throat - ICD9: 462, ICD10: J02.9 (primary diagnosis) - Group A strep molecular testing positive - STREP A MOLECULAR (POC) 2. Strep throat - ICD9: 034.0, ICD10: J02.0 - antibiotic as written - Discussed supportive care treatment with fluids, rest and analgesia. - The patient may also use warm salt water gargles, throat lozenges and/or OTC throat spray as needed. - Contagious dz precautions discussed- including considered contagious until on antibiotics for 24 hours - Call back if drooling, increased temperature, symptoms of dehydration and/or still sick in one week - CEPHALEXIN 500 MG CAPSULE 3. Lymphadenopathy, cervical - ICD9: 785.6, ICD10: R59.0 -likely due to strep infection. - Follow-up with your PCP in 3-5 days if symptoms have not improved or sooner if symptoms worsen - Discussed red flags and need for immediate medical evaluation if any occur. - Discussed supportive care treatment with fluids, rest and analgesia. - Discussed expected course of illness Isabel Jennings APRN.[facility] Instructions 04-07-2023 Patient Instructions Note Date & Type Note Facility 04-07-2023 Instructions Isabel Jennings APRN.[facility] - 04/07/2023 2:24 PM EST ASSESSMENT/PLAN: 1. Sore throat - ICD9: 462, ICD10: J02.9 (primary diagnosis) - Group A strep molecular testing positive - STREP A MOLECULAR (POC) 2. Strep throat - ICD9: 034.0, ICD10: J02.0 - antibiotic as written - Discussed supportive care treatment with fluids, rest and analgesia. - The patient may also use warm salt water gargles, throat lozenges and/or OTC throat spray as needed. - Contagious dz precautions discussed- including considered contagious until on antibiotics for 24 hours - Call back if drooling, increased temperature, symptoms of dehydration and/or still sick in one week - CEPHALEXIN 500 MG CAPSULE 3. Lymphadenopathy, cervical - ICD9: 785.6, ICD10: R59.0 -likely due to strep infection. - Follow-up with your PCP in 3-5 days if symptoms have not improved or sooner if symptoms worsen - Discussed red flags and need for immediate medical evaluation if any occur. - Discussed supportive care treatment with fluids, rest and analgesia. - Discussed expected course of illness Isabel Jennings APRN.SENIOR NET DEVELOPER documented in this encounter [facility] History of Present illness Narrative 04-07-2023 Isabel Jennings APRN.SENIOR NET DEVELOPER - 04/07/2023 2:19 PM EST Note Date & Type Note Facility 04-07-2023 History of Presen t illness Narrative Subjective Sore Throat Associated symptoms include coughing. Pertinent negatives include no abdominal pain, congestion, ear pain or vomiting. Makayla Lozano is a 37 year old female who presents with swollen lymph node on the left side of her neck. She has had chills, a slight cough and sore throat and nausea. She has taken ibuprofen for symptoms. Works in a [employer]. No fever today. Review of Systems Constitutional: Positive for chills. Negative for fever. HENT: Positive for sore throat. Negative for congestion and ear pain. Respiratory: Positive for cough. Cardiovascular: Negative. Gastrointestinal: Positive for nausea. Negative for abdominal pain and vomiting. Skin: Negative for rash. BP 112/60 Temp 36.7 C (98 F) Resp 18 Wt 65.7 kg (144 lb 12.8 oz) LMP 02/19/2021 (Exact Date) SpO2 98% No past medical history on file. No past surgical history on file. ALLERGIES Penicillins MEDICATIONS cephALEXin (KEFLEX) 500 mg capsule Take 1 capsule by mouth two times a day for 10 days. drospirenone-e.estradiol-lm.FA (BEYAZ) 3-0.02-0.451 mg (24) (4) tab Take 1 tablet by mouth once daily. (Patient not taking: Reported on 04/07/2023) benzonatate (TESSALON PERLE) 100 mg capsule Take 2 capsules by mouth three times daily as needed. (Patient not taking: Reported on 04/07/2023) No family history on file. Social History Tobacco Use Smoking status: Never Smokeless tobacco: Never Objective Physical Exam Vitals and nursing note reviewed. Constitutional: Appearance: Normal appearance. HENT: Right Ear: Tympanic membrane, ear canal and external ear normal. Left Ear: Tympanic membrane, ear canal and external ear normal. Nose: Nose normal. Mouth/Throat: Mouth: Mucous membranes are moist. Pharynx: Uvula midline. Posterior oropharyngeal erythema present. No oropharyngeal exudate. Cardiovascular: Rate and Rhythm: Normal rate and regular rhythm. Heart sounds: Normal heart sounds. Pulmonary: Effort: Pulmonary effort is normal. No respiratory distress. Breath sounds: Normal breath sounds. No wheezing or rales. Musculoskeletal: Cervical back: Neck supple. Lymphadenopathy: Cervical: Cervical adenopathy present. Left cervical: Superficial cervical adenopathy present. Skin: General: Skin is warm and dry. Findings: No erythema or rash. Neurological: Mental Status: She is alert. ASSESSMENT/PLAN: 1. Sore throat - ICD9: 462, ICD10: J02.9 (primary diagnosis) - Group A strep molecular testing positive - STREP A MOLECULAR (POC) 2. Strep throat - ICD9: 034.0, ICD10: J02.0 - antibiotic as written - Discussed supportive care treatment with fluids, rest and analgesia. - The patient may also use warm salt water gargles, throat lozenges and/or OTC throat spray as needed. - Contagious dz precautions discussed- including considered contagious until on antibiotics for 24 hours - Call back if drooling, increased temperature, symptoms of dehydration and/or still sick in one week - CEPHALEXIN 500 MG CAPSULE 3. Lymphadenopathy, cervical - ICD9: 785.6, ICD10: R59.0 -likely due to strep infection. - Follow-up with your PCP in 3-5 days if symptoms have not improved or sooner if symptoms worsen - Discussed red flags and need for immediate medical evaluation if any occur. - Discussed supportive care treatment with fluids, rest and analgesia. - Discussed expected course of illness Isabel Jennings APRN.SENIOR NET DEVELOPER documented in this encounter [facility] History of Present illness Narrative 03-05-2021 Baljinder Carney RT(R) - 03/05/2021 5:20 PM EST Note Date & Type Note Facility 03-05-2021 History of Presen t illness Narrative Radiology Service Progress Note PATIENT NAME: Makayla Lozano DATE OF SERVICE: March 05, 2021 TIME: 5:19 PM PATIENT IDENTITY VERIFICATION COMPLETED USING TWO (2) IDENTIFIERS: Name and Date of confirmed by patient verbally. FALL SCREENING: Has the patient had 2 falls in the last year or 1 fall with injury or currently using an Ambulatory Assistive Device (Walker, Cane, Wheelchair, Crutches, etc.)? No PATIENT GENDER DATA: Female. status: : No status: NO. PATIENT RELEVANT IMPLANT DATA REVIEWED: Not Applicable RADIOLOGY DEPARTMENT: General X-ray: Exam(s) Completed: Chest X-Ray PERIPHERAL IV DATA: Not applicable SIGNED BY: RT Per(R) March 05, 2021 5:19 PM documented in this encounter [facility] Evaluation note Note Date & Type Note Facility Evaluation note Diagnosis Sore throat- Primary Acute pharyngitis Strep throat Streptococcal sore throat Lymphadenopathy, cervical Enlargement of lymph nodes documented in this encounter [facility] Summary Purpose Family History No Family History Records FoundNo Family History Records Found Advance Directives No Advanced Directives Records FoundNo Advanced Directives Records Found Additional Source Comments Source Comments (unrecognize d section and content) In the event this informatio n is protected by the Federal Confidentiality of Alcohol and Drug Abuse Patient Records regulations: The Federal rules restrict any use of the information to criminally investigate or prosecute any alcohol or drug abuse patient.[facility] the event this information is protected by the Federal Confidentiality of Alcohol and Drug Abuse Patient Records regulations: The Federal rules restrict any use of the information to criminally investigate or prosecute any alcohol or drug abuse patient.[facility] Reason for Visit (unrecogniz ed section and content) Reason Comments Sore Throat Specialty Diagnoses / Procedures Referred By Sukhwinder goodman Referred To Contact Radiology / [facility] Diagnoses cough Procedures X-RAY EXAM CHEST 2 VIEWS TC XR CHEST Yong De Jesus APRN.SENIOR NET DEVELOPER [address] [place] [address] [facility] [address] [place] [address] Referral ID Status Reason Start Date Expiration Date Visits Re quested Visits Authorized [id number] Closed 03/05/2021 06/03/2021 99 99 INFORMATION SOURCE (unrecogn ized section and content) DATE CREATED AUTHOR 04/08/2023 [facility] DATE CREATED AUTHOR AUTHOR'S ORGANIZ ATION 12/03/2024 [facility] FOR RECORDS PERTAINING TO PATIENTS WHO ARE OR HAVE BEEN ENROLLED IN A CHEMICAL DEPENDENCY/SUBSTANCEABUSE PROGRAM, SOME INFORMATION MAY BE OMITTED. This clinical summary was aggregated from multiple sources. Caution should be exercised in using it in the provision of clinical care. This summary normalizes information from multiple sources, and as a consequence, information in this document may materially change the coding, format and clinical context of patient data. In addition, data may be omitted in some cases. CLINICAL DECISIONS SHOULD BE BASED ON THE PRIMARY CLINICAL RECORDS. [facility]. provides no warranty or guarantee of the accuracy or completeness of information in this document.
[2025-04-05 14:08] LABS: HPV APTIMA, High Risk Negative (Negative)
== END | disposition home or self-care (01) ==
LOC: LABSPEC 12:06
PROVIDERS: Visit Provider Nurse Practitioner Women's Health
DX: Z12.4 Encounter for screening for malignant neoplasm of cervix (principal)
CPT/HCPCS: 87624; 88175; G0145